=== PATIENT | female | born 1990 | race Caucasian/White ===

== ENCOUNTER 2018-03-05 21:12 | Emergency (ER) | payer OTHER ==
[2018-03-05 21:46] LABS: BILIRUBIN,URINE NEGATIVE (NEGATIVE); GLUCOSE, URINE (UA) NEGATIVE (NEGATIVE); KETONES,URINE (UA) NEGATIVE (NEGATIVE); LEUKOCYTE ESTERASE, URINE NEGATIVE (NEGATIVE); NITRITE,URINE NEGATIVE (NEGATIVE); OCCULT BLOOD,URINE TRACE-INTA (NEGATIVE); PH,URINE 5.5 PH (5.0-7.5); PROTEIN,URINE NEGATIVE (NEGATIVE); UROBILINOGEN,URINE 0.2 (NORMAL) E.U./dL (NORMAL)
[2018-03-05 21:47] LABS: CLARITY,URINE CLEAR (CLEAR)
[2018-03-05 22:05] LABS: BASOPHILS % (AUTO) 0.7 %; EOSINOPHILS # (AUTO) 0.1 10^3/uL (0.0-0.7); EOSINOPHILS % (AUTO) 1.7 %; HGB - HEMOGLOBIN 13.3 g/dL (12.0-16.0); LYMPHOCYTES # (AUTO) 1.8 10^3/uL (1.5-3.5); LYMPHOCYTES % (AUTO) 23.2 %; MEAN CORPUSCULAR HEMOGLOBIN 30.2 pg (27.0-31.0); MEAN CORPUSCULAR HGB CONC 32.9 g/dL (32.0-36.0); MEAN CORPUSCULAR VOLUME 91.9 fL (81.0-99.0); MEAN PLATELET VOLUME 8.5 fL (7.9-10.8); MONOCYTES # (AUTO) 0.7 10^3/uL (0.0-1.0); MONOCYTES % (AUTO) 8.9 %; NEUTROPHILS % (AUTO) 65.5 %; PLT - PLATELET COUNT 228 10^3/uL (130-450); WHITE BLOOD COUNT 7.6 x10^3/uL (4.8-10.8)
--- NOTE | 2018-03-05 22:06 | ED Physician Documentation ---
PD HPI FEMALE - Stated complaint Stated Complaint: FEMALE /6WK OB - Chief complaint Chief Complaint: Abd Pain - History obtained from History obtained from: Patient - History of Present Illness Timing - onset: Enter time (12:00), Today Timing - duration: Hours Timing - details: Abrupt onset, Intermittant, Waxing and waning Associated symptoms: Back pain, Pelvic pain, Vaginal bleeding Contributing factors: (6 weeks) Similar symptoms before: Diagnosis (similar symptoms with previous spontaneous abortions) Recently seen: Not recently seen Review of Systems Cardiac: reports: Reviewed and negative Respiratory: reports: Reviewed and negative GI: reports: Abdominal Pain (suprapubic cramping (not abdominal pain per se)). denies: Nausea, Vomiting : denies: Dysuria, Frequency Musculoskeletal: reports: Back pain PD PAST MEDICAL HISTORY - Past Medical History COURIER DELIVERY DRIVER: Miscarriage(s) - Past Surgical History /COURIER DELIVERY DRIVER: section - Present Medications Home Medications: Ambulatory Orders Medication Instructions Recorded Confirmed No Known Home Medications [No 03/05/18 03/05/18 Known Home Medications] - Allergies Allergies/Adverse Reactions: Allergies Allergy/AdvReac Type Severity Reaction Status Date / Time No Known Drug Allergies Allergy Verified 03/05/18 21:23 - Social History Does the pt smoke?: No Smoking Status: Never smoker Does the pt drink ETOH?: No Does the pt have substance abuse?: No PD ED PE NORMAL - Vitals Vital signs reviewed: Yes - General General: Alert and oriented X 3, Well developed/nourished - Cardiac Cardiac: RRR, No murmur - Respiratory Respiratory: No respiratory distress, Clear bilaterally - Abdomen Abdomen: Soft, Non tender - Back Back: No CVA TTP Results - Vitals Vitals: Vital Signs - 24 hr 03/05/18 03/06/18 03/06/18 21:20 00:00 01:25 Temperature 36.2 C L 36.4 C L Heart Rate 99 98 71 Respiratory 15 17 14 Rate Blood Pressure 124/83 H 117/70 118/68 O2 Saturation 100 98 100 Oxygen O2 Source Room air - Labs Labs: Laboratory Tests 03/05/18 03/05/18 03/05/18 21:40 21:57 21:57 WBC 7.6 RBC 4.40 Hgb 13.3 Hct 40.5 MCV 91.9 MCH 30.2 MCHC 32.9 RDW 13.0 Plt Count 228 MPV 8.5 Neut # 5.0 Lymph # 1.8 [facility] # 0.7 Eos # 0.1 Baso # 0.0 Absolute Nucleated RBC 0.00 Nucleated RBC % 0.0 Sodium Potassium Chloride Carbon Dioxide Anion Gap BUN Creatinine Estimated GFR (MDRD) Glucose Calcium Total Bilirubin AST ALT Alkaline Phosphatase Total Protein Albumin Globulin Albumin/Globulin Ratio Lipase HCG, Quant Urine Color YELLOW Urine Clarity CLEAR Urine pH 5.5 Ur Specific [place] >=1.030 H Urine Protein NEGATIVE Urine Glucose (UA) NEGATIVE Urine Ketones NEGATIVE Urine Occult Blood TRACE-INTA Urine Nitrite NEGATIVE Urine Bilirubin NEGATIVE Urine Urobilinogen 0.2 (NORMAL) Ur Leukocyte Esterase NEGATIVE Ur Microscopic Review NOT INDICATED Urine Culture Comments NOT INDICATED Blood Type O POSITIVE Antibody Screen NEGATIVE 03/05/18 03/05/18 21:57 21:57 WBC RBC Hgb Hct MCV MCH MCHC RDW Plt Count MPV Neut # Lymph # [facility] # Eos # Baso # Absolute Nucleated RBC Nucleated RBC % Sodium 135 Potassium 3.3 L Chloride 101 Carbon Dioxide 26 Anion Gap 8.0 BUN 14 Creatinine 0.6 Estimated GFR (MDRD) 118 Glucose 102 H Calcium 9.4 Total Bilirubin 0.5 AST 17 ALT 15 Alkaline Phosphatase 46 Total Protein 7.8 Albumin 4.8 Globulin 3.0 Albumin/Globulin Ratio 1.6 Lipase 30 HCG, Quant 9922.00 Urine Color Urine Clarity Urine pH Ur Specific [place] Urine Protein Urine Glucose (UA) Urine Ketones Urine Occult Blood Urine Nitrite Urine Bilirubin Urine Urobilinogen Ur Leukocyte Esterase Ur Microscopic Review Urine Culture Comments Blood Type Antibody Screen - Rads (name of study) 1st trimester US Radiology: Prelim report reviewed, See rad report PD MEDICAL DECISION MAKING - ED course Complexity details: reviewed results, re-evaluated patient, considered differential, d/w patient Departure - Departure Disposition: 01 Home, Self Care Clinical Impression: Threatened Condition: Good Instructions: ED Miscarriage Poss Follow-Up: EVONNE PATHAK [Primary Care Provider] - Discharge Date/Time: 03/06/18 01:30
[2018-03-05 22:18] LABS: ALBUMIN 4.8 g/dL (3.2-5.5); ALBUMIN/GLOBULIN RATIO 1.6 (1.0-2.2); BILIRUBIN,TOTAL 0.5 mg/dL (0.2-1.0); CALCIUM 9.4 mg/dL (8.5-10.3); CREATININE 0.6 mg/dL (0.4-1.0); TOTAL PROTEIN 7.8 g/dL (6.7-8.2)
--- NOTE | 2018-03-06 00:26 | Ultrasound Report ---
REVISED: REPORT ORIGINALLY SIGNED ON 03/06/2018@0026; ORDERS LINKED ON 2017 jll EXAM: FIRST TRIMESTER OBSTETRIC ULTRASOUND (Less than 11 weeks) EXAM DATE: 03/06/2018 12:08 AM. CLINICAL HISTORY: , vag. bleeding and cramping. LMP: 01/23/2018. COMPARISONS: None. TECHNIQUE: Transabdominal and transvaginal ultrasound examination with static image documentation. CLINICAL DATES: EGA weeks/days with ESTEFANI 5 weeks 5 days based on LMP. ASSESSMENT Gestational Sac: Single intrauterine. Mean gestational sac diameter: 11 mm = 5 weeks 5 days. Embryo: Absent Yolk sac: 3 mm. Amniotic fluid: Not accurately assessed at this gestational age. Early placenta: Not visible at this gestational age. Other: There is an approximate 17 mm hypoechoic perigestational collection.. MATERNAL STRUCTURES Uterus: Anteverted. Unremarkable. Cervix: Closed. Right Ovary/Adnexa: Unremarkable. The ovary measures 2.5 x 1.2 x 1.6 cm, volume 2.3 cc. Left Ovary/Adnexa: Unremarkable. The ovary measures 2.1 x 2.1 x 2.3 cm, volume 5.1 cc. Free Fluid: None. Other: None. IMPRESSION 1. Intrauterine gestation with absent pole is likely secondary to early gestational age. Follow-up pelvic ultrasound in 10-14 days recommended. 2. Chronic perigestational implant bleed. [facility] Referring Provider Line: [phone] SITE ID: [id number]
[2018-03-06 01:32] VITALS: BP 118/68
== END 2018-03-06 01:30 | disposition home or self-care (01) ==
LOC: ED 21:12
DX: O20.0 Threatened abortion (principal); Z3A.01 Less than 8 weeks gestation of pregnancy
CPT/HCPCS: 36415; 76801; 76817; 80053; 81001; 81003; 83690; 84702; 85025; 86850; 86900; 86901; 87086; 99283

== ENCOUNTER 2018-09-29 20:31 | Outpatient (CLI) | payer OTHER ==
[2018-09-29 21:55] LABS: RUPTURE OF MEMBRANES PLUS NEGATIVE (NEGATIVE)
[2018-09-29 22:09] VITALS: BP 120/80
== END 2018-09-29 22:30 | disposition home or self-care (01) ==
LOC: WFO 20:31 → FBP 20:34 → WFO 22:30
PROVIDERS: ATTEND Obstetrics & Gynecology
DX: Z34.83 Encounter for supervision of other normal pregnancy, third trimester (principal)
CPT/HCPCS: 84112; 99213